=== PATIENT | female | born 1990 | race African-American/Black ===

== ENCOUNTER 2017-06-10 12:05 | Day surgery (SDC) | payer BC ==
[~2017-06-10] VITALS: Ht 162.6 cm; Wt 99.8 kg
--- NOTE | ~2017-06-10 | OP ---
Record Of Operation [facility] [address] [place]. [address] NAME: ELIZABETH JORDAN : 88 STATUS : [facility] UNIT#: [id number] AGE: 27 ADM/REG DATE : 06/10/17 MR#: [id number] REPORT SERV DATE: 06/10/17 DICTATED BY: SAKSHI VILLAGOMEZ DATE: 06/10/17 REPORT STATUS : Draft TRANSCRIBED BY: MODL DATE: 06/10/17 DATE OF PROCEDURE: 06/10/2017 PREOPERATIVE DIAGNOSIS: Biliary dyskinesia. POSTOPERATIVE DIAGNOSIS: Biliary dyskinesia. OPERATION: Laparoscopic cholecystectomy. FINDINGS: The patient had a few adhesions around the gallbladder. The remainder of the abdominal exploration was essentially within normal limits. SUMMARY: After adequate general anesthesia, prep and drape, an infraumbilical incision was made, carried down the peritoneal cavity under direct vision. Blunt port was placed. Abdomen insufflated with high-flow CO2 and the camera inserted. The previously noted findings were noted. Second, third, and fourth trocars were placed under direct vision in the epigastric area, midclavicular line, and right anterior axillary line. The lateral two ports were used to grasp the gallbladder and the dissecting forceps placed through the epigastric port, and the cystic duct and cystic artery dissected free from the surrounding tissue. The junction of the gallbladder and the cystic duct were identified. Two clips were placed proximally and one distally on the cystic duct. Two clips were placed proximally, one distally on the cystic artery. The cystic duct and cystic artery divided and the gallbladder were taken out in retrograde fashion via the cautery unit. Good hemostasis was obtained using cautery unit and Bryan was then placed over the gallbladder bed for further hemostasis. The gallbladder placed in an Endopouch, brought beneath the infraumbilical port. The camera moved to superior port and the gallbladder brought out under direct vision. The other trocars removed. No evidence of any bleeding. CO2 was removed from the abdomen. The fascia was closed at the infraumbilical site with running 0 Vicryl suture. Subcutaneous tissue and skin closed in routine fashion after injection of 0.5% Marcaine without. The patient tolerated the procedure well and taken to the recovery room in satisfactory condition. VALENCIA/CAROL ANN Sakshi Villagomez M.D. / [id number] CC: Chris Pagan M.D.
[2017-06-10 13:06] LABS: A/G RATIO 0.9 (0.7-1.9); ALBUMIN 3.8 G/DL (3.5-5.0); ALKALINE PHOSPHATASE 78 U/L (45-117); BUN (BLOOD UREA NITROGEN) 13 MG/DL (6-23); CALCIUM, SERUM 9.2 MG/DL (8.5-10.4); CHLORIDE, SERUM 105 MMOL/L (96-112); CO2 (CARBON DIOXIDE) 28 MMOL/L (24-34); CREATININE 0.93 MG/DL (0.55-1.02); GFR AFRICAN AMERICAN 97 ML/MIN (>=60); GFR NON AFRICAN AMERICAN 84 ML/MIN (>=60); GLOBULIN 4.4 G/DL (2.5-4.1); GLUCOSE, SERUM 87 MG/DL (60-99); POTASSIUM, SERUM 3.9 MMOL/L (3.5-5.3); SGOT(AST) 15 U/L (5-40); SGPT(ALT) 23 U/L (5-65); SODIUM, SERUM 140 MMOL/L (135-148); TOTAL BILIRUBIN 0.5 MG/DL (0-1.2); TOTAL PROTEIN 8.2 G/DL (6.0-8.5)
== END 2017-06-10 17:38 | disposition home or self-care (01) ==
LOC: SDC 12:05
PROVIDERS: Specialist
PROC: 0FT44ZZ Resection of Gallbladder, Percutaneous Endoscopic Approach (ICD-10-PCS; principal; 2017-06-10 13:15)
DX: K81.1 Chronic cholecystitis (principal); K66.0 Peritoneal adhesions (postprocedural) (postinfection); E66.9 Obesity, unspecified; F17.210 Nicotine dependence, cigarettes, uncomplicated; Z98.890 Other specified postprocedural states; Z68.37 Body mass index [BMI] 37.0-37.9, adult
CPT/HCPCS: 76000; 80053; 84703; 88304; J0690; J1170; J2250; J2370; J2405; J2710; J3010; Q9967